=== PATIENT | male | born 2005 | race Two or more races ===

== ENCOUNTER 2025-06-16 05:01 | Emergency (ER) | payer SELFPAY ==
[~2025-06-16] VITALS: Ht 180.3 cm; Wt 68.0 kg
--- NOTE | 2025-06-16 05:26 | ED.PDOC ---
History of Present Illness HPI Comments 20-year-old, homeless male is brought in by ambulance for chief complaint of altered mental status status post possible drug overdose. Per EMS personnel report, patient was found by his friends unresponsive, with agonal breaths, this morning. He was given 4 mg of Narcan intranasal by bystanders prior to EMS arrival. On scene, patient was awake and alert, denying any drug use. Upon arrival to ED, patient is actively vomiting. He still denies any drug use. Admits to alcohol intake, earlier, and previous history of drug overdose in the past. Chief Complaint: Overdose Time Seen by MD: 05:15 Reviewed Notes: Nurses Notes, Coat Checker Notes Information Source: Patient, Emergency Med Personnel Mode of Arrival: EMS Severity: Moderate Timing: Hours Duration: Since onset Prehospital treatment: 12 Lead EKG, Web Press Roll Tender Past Medical History PAST MEDICAL HISTORY: Denies Surgical History: Denies all surgeries Family History Family History: Unknown Social History Smoker: Non-Smoker Alcohol: Occasionally Drugs: Other (Opiates) Lives In: Homeless All Other Systems: Reviewed and Negative (Comprehensive systems review obtained and negative except for what is stated in the HPI.) Physical Exam General Appearance: No Apparent Distress, Normal HEENT: Normal ENT Inspection, Pharynx Normal, TMs Normal, Other (3 mm sized pupils, bilaterally) Neck: Full Range of Motion, Non-Tender, Normal, Normal Inspection Respiratory: Chest Non-Tender, Lungs Clear, No Accessory Muscle Use, No Respiratory Distress, Normal Breath Sounds Cardiovascular: No Edema, No JVD, No Murmur, No Gallop, Normal Peripheral Pulses, Regular Rate/Rhythm Breast Exam: Deferred Gastrointestinal: No Organomegaly, Non Tender, No Pulsatile Mass, Normal Bowel Sounds, Soft Genitalia: Deferred Pelvic: Deferred Rectal: Deferred Extremities: No calf tenderness, Normal capillary refill, Normal inspection, Normal range of motion, Non-tender, No pedal edema Musculoskeletal : Apperance: Normal Neurologic: Alert, batch freezer operator II-XII nml as Tested, No Motor Deficits, Normal Affect, Normal Mood, No Sensory Deficits Cerebellar Function: Normal Reflexes: Normal Skin: Dry, Normal Color, Warm Lymphatic: No Adenopathy Was a procedure done? Was a procedure done?: No Differential Dx Considerations may include: Opiate overdose, substance overdose, substance abuse, substance dependency, dehydration, electrolyte imbalance, among others X-Ray, Labs, Meds, VS Vital Signs Date Time Temp Pulse Resp B/P (MAP) Pulse Ox O2 Delivery O2 Flow Rate FiO2 06/16/25 05:06 98.4 77 18 125/87 98 98.4 Time of 1ST Reevaluation: 05:45 Reevaluation 1ST: Unchanged Patient Education/Counseling: Diagnosis, Treatment Family Education/Counseling: No Family Present Comments This is a homeless man who possibly had overdosed. However he only admits to have been drinking and denied any drugs. Bystanders found them unresponsive and gave him Narcan. Then called 911. According to EMT, patient responded to Narcan woke up and vomited. Patient currently is only complaining about feeling fatigued. He denies any other symptoms. Patient is alert oriented appeared disheveled has no signs of head injuries or injuries anywhere else. I initiated a workup for this patient however but she had been seen in the next 30 minutes I will signed out the care of this patient to my colleague Dr. Jameson Additional Information Previous visits reviewed: N/A The following tests were ordered, and results were reviewed by me: Additional Information was gathered from interviewing the following independent historians: EMS personnel I reviewed and agreed with the following test results read by other providers: I discussed treatment and results with medical personnel and: patient SEPSIS Sepsis Screen Physician Orders Complete Blood Count (06/16/25 05:18) Drug Screen (06/16/25 05:18) Chest Portable (06/16/25 05:18) Blood Alcohol (06/16/25 05:18) Mendoza Catheters (06/16/25 05:18) Naloxone Hcl (Narcan) (06/16/25 05:30) Basic Metabolic Panel (06/16/25 05:18) Vital Signs Date Time Temp Pulse Resp B/P (MAP) Pulse Ox O2 Delivery O2 Flow Rate FiO2 06/16/25 05:06 98.4 77 18 125/87 98 98.4 Departure 1 Departure Time of Disposition: 05:32 Impression: Primary Impression: Overdose Disposition: 30 STILL A PATIENT Condition: Stable Critical Care Note Critical Care Time?: No Stability Stability form required: No Heart Score Heart Score: Heart Score Response (Comments) Value History N/A 0 EKG N/A 0 Age N/A 0 Risk Factors N/A 0 Troponin N/A 0 Total 0 I personally scribed for LILA ASHBY MD ([email or web address]) on 06/16/25 at 05:26. Electronically submitted by Justus Loya [email or web address]). LILA ASHBY MD Jun 16, 2025 05:26
[2025-06-16 05:40] VITALS: PULSE 67; RESP 18; O2SAT 100
--- NOTE | 2025-06-16 06:02 | DVH ---
CHEST RADIOGRAPH Indication: altered Technique: Single frontal view of the chest was obtained Comparison: None FINDINGS: Lines and Tubes: None Lungs: No focal consolidation. Pleura: No effusion. No pneumothorax. Cardiomediastinal contours: Unremarkable Bones: No acute osseous abnormality. IMPRESSION: 1. No acute cardiopulmonary disease.
[2025-06-16] MEDS: NALOXONE HCL 0.4 MG/ML VIAL IV ONE (07:05)
[2025-06-16] MEDS ORDERED: NALOXONE HCL 0.4 MG/ML VIAL IM ONE (07:15)
--- NOTE | 2025-06-16 07:39 | ED.PDOC ---
Departure 1 Departure Time of Disposition: 07:39 (Patient is now A&O x4 we will discharge patient home.) Impression: Primary Impression: Overdose Additional Impression: Polysubstance abuse Disposition: HOME / SELF CARE / HOMELESS Condition: Stable Additional Instructions: Do not use drugs. There are resources to help you quit. You can call: [phone] If your symptoms worsen or you have any other concerns please return to the emergency room. Discharged With: Self LINUS SANDOVAL MD Jun 16, 2025 07:39
[2025-06-16 07:53] VITALS: BP 106/54; PULSE 90; RESP 14; TEMP 97.5; O2SAT 96
== END 2025-06-16 08:18 | disposition home or self-care (01) ==
LOC: ER 05:01 → EDBD 05:01 → ER 08:14
DX: T65.91XA Toxic effect of unspecified substance, accidental (unintentional), initial encounter (principal); F19.10 Other psychoactive substance abuse, uncomplicated; Y92.89 Other specified places as the place of occurrence of the external cause
CPT/HCPCS: 71045